=== PATIENT | male | born 2000 | race African-American/Black ===

== ENCOUNTER 2021-05-08 10:04 | Emergency (ER) | payer MEDICAID ==
[~2021-05-08] VITALS: Ht 180.3 cm; Wt 132.0 kg
[2021-05-08] MEDS ORDERED: KETOROLAC 30MG/ML VIAL IV STA (10:41)
[2021-05-08 11:08] LABS: BASOPHILS % 0.9 % (0.0-2.0); EOSINOPHILS % 2.1 % (0.0-5.0); HEMATOCRIT. 42.1 % (42.0-52.0); LYMPHOCYTES % 40.3 % (20.0-50.0); MEAN CORPUSCULAR HEMOGLOBIN 29.8 pg (28.0-32.0); MEAN CORPUSCULAR VOLUME 83.6 fL (80.0-94.0); MEAN PLATELET VOLUME 8.9 fl (7.4-10.4); NEUTROPHILS % 48.7 % (40.0-76.0); PLATELET 246 x1000/uL (130-400); RED BLOOD CELL COUNT 5.04 mill/uL (4.7-6.1); RED CELL DISTRIBUTION WIDTH 12.8 % (11.6-14.6)
[2021-05-08 11:13] LABS: CHLORIDE 105 mEq/L (98-107)
[2021-05-08] MEDS ORDERED: IBUP-2028 MT (12:03)
[2021-05-08 12:17] VITALS: BP 100/62
== END 2021-05-08 12:30 | disposition home or self-care (01) ==
LOC: ER 10:41
DX: R07.89 Other chest pain (principal); F12.10 Cannabis abuse, uncomplicated; I51.7 Cardiomegaly
CPT/HCPCS: 36415; 71045; 80053; 84484; 85025; 93005; 96374; 99285; J1885